=== PATIENT | male | born 1945 | race Caucasian/White ===

== ENCOUNTER 2016-07-14 01:53 | Inpatient (IN) | payer MEDICARE ==
[~2016-07-14] VITALS: Ht 177.8 cm; Wt 119.5 kg
[~2016-07-14 01:53] MED LIST: ALLO100T30 PO; FURO-92 PO; GLUC1TAB55 PO; LISI-467 PO; METO25TA91 PO; PRED5TAB PO; TRAM-28 PO
[2016-07-14] MEDS ORDERED: SODIUM CHLORIDE 0.9% 1,000 ML IV ONE (02:12)
[2016-07-14] MEDS ORDERED: ASPIRIN 81 MG TABLET CHEW PO ONE (02:30)
[2016-07-14] MEDS ORDERED: SODIUM CHLORIDE FLUSH 10ML SYR IVF ONE (02:30)
[2016-07-14] MEDS ORDERED: DILTIAZEM 5 MG/ML, 5ML IV ONE (02:30)
[2016-07-14] MEDS ORDERED: ONDANSETRON 2MG/ML, 2ML IVPush ONE (02:30)
[2016-07-14 02:49] LABS: ASPARTATE AMINO TRANSFERASE 13 U/L (15-37); BLOOD UREA NITROGEN 32 mg/dL (7-18)
[2016-07-14] MEDS ORDERED: SODI325T PO (02:51)
[2016-07-14] MEDS ORDERED: ATOR10TA9 PO (02:51)
[2016-07-14] MEDS ORDERED: METO25TA35 PO (02:51)
[2016-07-14 02:59] LABS: IS PT STATUS REG ER OR PRE ER? YES
[2016-07-14] MEDS ORDERED: VANCOMYCIN 2,000 MG in SODIUM CHLORIDE 0.9% 500 ML IV ONE (03:00)
[2016-07-14] MEDS ORDERED: SODIUM CHLORIDE 0.9% 1,000ML IVBOLUS ONE (03:00)
[2016-07-14] MEDS ORDERED: VANCOMYCIN PER PHARMACY IV ONE (03:00)
[2016-07-14] MEDS ORDERED: PIPERACILLIN/TAZO 3.375 GM in SODIUM CHLORIDE 0.9% 50 ML IVPB ONE (03:00)
[2016-07-14] MEDS ORDERED: MORPHINE SULFATE 4 MG/ML, 1ML ONE ×2 (03:17→04:00)
[2016-07-14] MEDS ORDERED: ONDANSETRON 2MG/ML, 2ML ONE (03:17)
[2016-07-14] MEDS ORDERED: ASPIRIN 81 MG TABLET CHEW ONE (03:17)
[2016-07-14] MEDS ORDERED: DILTIAZEM 5 MG/ML, 5ML ONE (03:17)
[2016-07-14] MEDS: MORPHINE SULFATE 4 MG/ML, 1ML IVPush PRN ×2 (03:46→04:04)
[2016-07-14] MEDS ORDERED: OMNIPAQUE 350 MG/ML, 100ML BOTTLE ONE (04:52)
[2016-07-14] MEDS ORDERED: SODIUM CHLORIDE 0.9% 1,000 ML IV SCH (05:48)
[2016-07-14] MEDS ORDERED: POLYETHYLENE GLYCOL 17 GM PACKET PO PRN (06:00)
[2016-07-14] MEDS ORDERED: ACETAMINOPHEN 325 MG TABLET PO PRN (06:00)
[2016-07-14] MEDS ORDERED: DOCUSATE 100 MG CAPSULE PO PRN (06:00)
[2016-07-14] MEDS ORDERED: ONDANSETRON 2MG/ML, 2ML IVPush PRN (06:00)
[2016-07-14] MEDS ORDERED: LABETALOL 5MG/ML, 20ML IVPush PRN (06:00)
[2016-07-14] MEDS ORDERED: ENALAPRILAT 1.25 MG/ML, 2ML IV PRN (06:00)
[2016-07-14] MEDS ORDERED: hydrALAzine 20 MG/ML, 1ML IV PRN (06:00)
[2016-07-14] MEDS ORDERED: DILTIAZEM 5 MG/ML, 5ML IVPush PRN (06:00)
[2016-07-14 06:29] VITALS: BP 124/85
[2016-07-14] MEDS: SENNA/DOCUSATE TABLET PO SCH (09:00)
[2016-07-14] MEDS: ENOXAPARIN 40 MG/0.4 ML SQ SCH (10:10)
[2016-07-14] MEDS: CEFTRIAXONE PMX 1GM/50ML 50 ML IV SCH (10:10)
[2016-07-14] MEDS: ATORVASTATIN 10 MG TABLET PO SCH (10:11)
[2016-07-14] MEDS: METOPROLOL TARTRATE 25 MG TABLET PO SCH ×2 (10:11→20:16)
[2016-07-14] MEDS: morphine SULFATE 10 MG/ML, 1ML IVPush PRN ×3 (10:25→20:17)
[2016-07-14 10:51] LABS: C-REACTIVE PROTEIN, QUANT > 19.00 mg/dL (0.02-0.49); IS PT STATUS REG ER OR PRE ER? NO
[2016-07-14] MEDS ORDERED: SODIUM BICARBONATE 4.2%, 5ML ONE (12:19)
[2016-07-14] MEDS ORDERED: LIDOCAINE 1%, 20ML ONE (12:19)
[2016-07-14 15:10] LABS: IS PT STATUS REG ER OR PRE ER? NO
[2016-07-14] MEDS ORDERED: PHARMACOKINETIC MONITORING MC PRN (18:00)
[2016-07-14] MEDS ORDERED: VANCOMYCIN PER PHARMACY MC PRN (18:00)
[2016-07-14] MEDS ORDERED: PHARMACOKINETIC CONSULTATION MC ONE (18:00)
[2016-07-14 20:13] VITALS: BP 92/66
[2016-07-14 23:27] LABS: PATH.CAST-FLAG NOT PRESENT; SPERM-FLAG NOT PRESENT; SRC-FLAG NOT PRESENT; XTAL-FLAG NOT PRESENT; YLC-FLAG NOT PRESENT
[2016-07-15 02:02] VITALS: BP 110/68
[2016-07-15 05:33] LABS: BLOOD UREA NITROGEN 49 mg/dL (7-18)
[2016-07-15 05:38] LABS: ASPARTATE AMINO TRANSFERASE 17 U/L (15-37)
[2016-07-15 08:00] VITALS: BP 107/69
[2016-07-15] MEDS: CEFTRIAXONE PMX 1GM/50ML 50 ML IV SCH (08:24)
[2016-07-15] MEDS: ATORVASTATIN 10 MG TABLET PO SCH (08:24)
[2016-07-15] MEDS: METOPROLOL TARTRATE 25 MG TABLET PO SCH ×3 (08:24→20:27)
[2016-07-15] MEDS: ENOXAPARIN 40 MG/0.4 ML SQ SCH (08:25)
[2016-07-15] MEDS: SENNA/DOCUSATE TABLET PO SCH (08:25)
[2016-07-15] MEDS ORDERED: SODIUM CHLORIDE 0.9% 1,000 ML IV SCH (08:45)
[2016-07-15] MEDS ORDERED: PHARMACY MAY ADJ FOR RENAL FX MC PRN (09:00)
[2016-07-15] MEDS ORDERED: HEPARIN 5,000 UNITS/ML, 1ML SQ SCH (09:00)
[2016-07-15] MEDS: TAMSULOSIN 0.4 MG CAP.ER.24H PO SCH (10:14)
[2016-07-15] MEDS ORDERED: COLCHICINE 0.6 MG TABLET PO SCH (13:00)
[2016-07-15] MEDS ORDERED: COLCHICINE 0.6 MG TABLET PO ONE ×2 (13:00→14:30)
[2016-07-15] MEDS: SODIUM CHLORIDE 0.9% 1,000 ML IV SCH ×2 (15:00→20:27)
[2016-07-15 15:26] VITALS: BP 121/72
[2016-07-15 19:21] VITALS: BP 115/62
[2016-07-15] MEDS: CEFTAROLINE 200 MG in SODIUM CHLORIDE 0.9% 100 ML IV SCH (20:26)
[2016-07-16 01:35] VITALS: BP 108/67
[2016-07-16] MEDS: SODIUM CHLORIDE 0.9% 1,000 ML IV SCH ×4 (05:00→14:36)
[2016-07-16 05:29] LABS: BLOOD UREA NITROGEN 48 mg/dL (7-18)
[2016-07-16 08:20] VITALS: BP 114/72
[2016-07-16] MEDS ORDERED: SODIUM CHLORIDE 0.9% 1,000 ML IV SCH (08:45)
[2016-07-16] MEDS ORDERED: HEPARIN 5,000 UNITS/ML, 1ML SQ SCH (09:00)
[2016-07-16] MEDS ORDERED: PHARMACY MAY ADJ FOR RENAL FX MC PRN (09:00)
[2016-07-16] MEDS: CEFTAROLINE 200 MG in SODIUM CHLORIDE 0.9% 100 ML IV SCH ×2 (09:22→21:36)
[2016-07-16] MEDS: TAMSULOSIN 0.4 MG CAP.ER.24H PO SCH (09:22)
[2016-07-16] MEDS: METOPROLOL TARTRATE 25 MG TABLET PO SCH ×2 (09:23→21:50)
[2016-07-16] MEDS: ATORVASTATIN 10 MG TABLET PO SCH (10:47)
[2016-07-16] MEDS: SENNA/DOCUSATE TABLET PO SCH (10:47)
[2016-07-16 13:45] VITALS: BP 150/73
[2016-07-16] MEDS: MAGNESIUM HYDROXIDE 8%, 30ML UDC PO SCH (18:03)
[2016-07-16 18:52] VITALS: BP 126/65
[2016-07-16] MEDS: HEPARIN 5,000 UNITS/ML, 1ML SQ SCH (21:37)
[2016-07-16] MEDS: COLCHICINE 0.6 MG TABLET PO SCH (21:37)
[2016-07-17 00:55] VITALS: BP 107/69
[2016-07-17 05:48] LABS: ASPARTATE AMINO TRANSFERASE 22 U/L (15-37); BLOOD UREA NITROGEN 44 mg/dL (7-18)
[2016-07-17] MEDS: HEPARIN 5,000 UNITS/ML, 1ML SQ SCH ×3 (06:00→23:26)
[2016-07-17] MEDS: SODIUM CHLORIDE 0.9% 1,000 ML IV SCH ×3 (06:00→23:26)
[2016-07-17 06:23] VITALS: BP 148/84
[2016-07-17] MEDS ORDERED: BISACODYL 5 MG EC TABLET PO ONE (09:00)
[2016-07-17] MEDS: CEFTAROLINE 200 MG in SODIUM CHLORIDE 0.9% 100 ML IV SCH (09:36)
[2016-07-17] MEDS: SENNA/DOCUSATE TABLET PO SCH (09:37)
[2016-07-17] MEDS: METOPROLOL TARTRATE 25 MG TABLET PO SCH ×2 (09:37→20:09)
[2016-07-17] MEDS: TAMSULOSIN 0.4 MG CAP.ER.24H PO SCH (09:38)
[2016-07-17] MEDS: MAGNESIUM HYDROXIDE 8%, 30ML UDC PO SCH (09:38)
[2016-07-17] MEDS: COLCHICINE 0.6 MG TABLET PO SCH ×2 (09:38→20:09)
[2016-07-17] MEDS: ATORVASTATIN 10 MG TABLET PO SCH (09:40)
[2016-07-17 13:35] VITALS: BP 138/74
[2016-07-17] MEDS: CEFTAROLINE 400 MG in SODIUM CHLORIDE 0.9% 100 ML IV SCH (18:14)
[2016-07-17 19:16] VITALS: BP 138/68
[2016-07-18 01:36] VITALS: BP_SYST 163; BP_SYST 167; BP_DIAS 93; BP_DIAS 94
[2016-07-18] MEDS: SODIUM CHLORIDE 0.9% 1,000 ML IV SCH (05:17)
[2016-07-18] MEDS: CEFTAROLINE 400 MG in SODIUM CHLORIDE 0.9% 100 ML IV SCH (05:17)
[2016-07-18 06:34] VITALS: BP 175/80
[2016-07-18 07:02] LABS: ASPARTATE AMINO TRANSFERASE 12 U/L (15-37); BLOOD UREA NITROGEN 39 mg/dL (7-18)
[2016-07-18] MEDS: METOPROLOL TARTRATE 25 MG TABLET PO SCH ×2 (08:19→20:02)
[2016-07-18] MEDS: ATORVASTATIN 10 MG TABLET PO SCH (08:19)
[2016-07-18] MEDS: COLCHICINE 0.6 MG TABLET PO SCH ×2 (08:19→20:02)
[2016-07-18] MEDS: TAMSULOSIN 0.4 MG CAP.ER.24H PO SCH (08:19)
[2016-07-18] MEDS: HEPARIN 5,000 UNITS/ML, 1ML SQ SCH ×2 (08:20→16:31)
[2016-07-18] MEDS: SENNA/DOCUSATE TABLET PO SCH (08:26)
[2016-07-18] MEDS: MAGNESIUM HYDROXIDE 8%, 30ML UDC PO SCH (08:26)
[2016-07-18] MEDS: SODIUM CHLORIDE 0.45% 1,000 ML IV SCH ×2 (13:07→20:03)
[2016-07-18 13:22] VITALS: BP 142/84
[2016-07-18] MEDS: CEFTAROLINE 600 MG in SODIUM CHLORIDE 0.9% 100 ML IV SCH (18:28)
[2016-07-18 20:17] VITALS: BP 173/92
[2016-07-19] MEDS: HEPARIN 5,000 UNITS/ML, 1ML SQ SCH ×3 (00:27→15:00)
[2016-07-19 01:29] VITALS: BP 168/85
[2016-07-19] MEDS: SODIUM CHLORIDE 0.45% 1,000 ML IV SCH ×2 (04:11→12:00)
[2016-07-19] MEDS: CEFTAROLINE 600 MG in SODIUM CHLORIDE 0.9% 100 ML IV SCH ×2 (05:20→17:51)
[2016-07-19 06:44] LABS: BLOOD UREA NITROGEN 31 mg/dL (7-18)
[2016-07-19] MEDS: SENNA/DOCUSATE TABLET PO SCH (07:31)
[2016-07-19 07:58] VITALS: BP 188/104
[2016-07-19] MEDS: ATORVASTATIN 10 MG TABLET PO SCH (08:10)
[2016-07-19] MEDS: METOPROLOL TARTRATE 25 MG TABLET PO SCH (08:11)
[2016-07-19] MEDS: COLCHICINE 0.6 MG TABLET PO SCH (08:11)
[2016-07-19] MEDS: TAMSULOSIN 0.4 MG CAP.ER.24H PO SCH (08:11)
[2016-07-19 10:24] VITALS: BP 155/82
[2016-07-19 14:38] VITALS: BP 166/83
[2016-07-19] MEDS ORDERED: TRAM50TA2 PO (15:33)
[2016-07-19] MEDS ORDERED: TAMS-11 PO (15:33)
[2016-07-19] MEDS ORDERED: METO25TA35 PO (15:33)
[2016-07-19] MEDS ORDERED: COLC0.6T37 PO (15:33)
[2016-07-19] MEDS ORDERED: HEPA5000 SQ (15:33)
[2016-07-22] MEDS ORDERED: SODIUM CHLORIDE 0.9% 1,000 ML IV SCH (13:30)
[2016-07-22 18:06] LABS: COCCIDIOIDES AB (CF) <1:2 (<1:2); COCCIDIOIDES IGG 0.3 IV (<=0.9); COCCIDIOIDES IGM 0.3 IV (<=0.9)
== END 2016-07-19 19:30 | DRG 871 ==
LOC: ED 03:00 → EDIP 03:55 → 5SO 06:02 → 3NE 07-15 21:06
PROVIDERS: ADMIT Family Medicine; ATTEND Family Medicine
PROC: 0S9C3ZZ Drainage of Right Knee Joint, Percutaneous Approach (ICD-10-PCS; principal; 2016-07-14)
DX: A41.9 Sepsis, unspecified organism (principal); E43 Unspecified severe protein-calorie malnutrition; I50.43 Acute on chronic combined systolic (congestive) and diastolic (congestive) heart failure; N17.0 Acute kidney failure with tubular necrosis; I13.0 Hypertensive heart and chronic kidney disease with heart failure and stage 1 through stage 4 chronic kidney disease, or unspecified chronic kidney disease; M00.9 Pyogenic arthritis, unspecified; N18.4 Chronic kidney disease, stage 4 (severe); W18.30XA Fall on same level, unspecified, initial encounter; E86.0 Dehydration; D64.9 Anemia, unspecified; M25.461 Effusion, right knee; D75.89 Other specified diseases of blood and blood-forming organs; F17.290 Nicotine dependence, other tobacco product, uncomplicated; M25.511 Pain in right shoulder; H40.9 Unspecified glaucoma; I34.0 Nonrheumatic mitral (valve) insufficiency; I48.91 Unspecified atrial fibrillation; I49.3 Ventricular premature depolarization; I77.819 Aortic ectasia, unspecified site; T50.8X5A Adverse effect of diagnostic agents, initial encounter; K59.00 Constipation, unspecified; M10.9 Gout, unspecified; N14.1 Nephropathy induced by other drugs, medicaments and biological substances; R33.9 Retention of urine, unspecified; S83.013A Lateral subluxation of unspecified patella, initial encounter; Y93.89 Activity, other specified; Y92.89 Other specified places as the place of occurrence of the external cause; Z82.5 Family history of asthma and other chronic lower respiratory diseases; Z88.5 Allergy status to narcotic agent; J84.10 Pulmonary fibrosis, unspecified
CPT/HCPCS: 20606; 20611; 29505; 36415; 71010; 71275; 72110; 72190; 74175; 76770; 80048; 80053; 80202; 80307; 81001; 82040; 82550; 82945; 83605; 83735; 83880; 84145; 84436; 84443; 84484; 84550; 85025; 85610; 85651; 85730; 85810; 86140; 86480; 86635; 87040; 87070; 87075; 87086; 87205; 89050; 89060; 93005; 93970; 96361; 96365; 96368; 96375; C8929; J0696; J0712; J1644; J1650; J2405; J2543; J3370; J3490; Q9967; J0360; J2270; J7030; J7040; J7512